=== PATIENT | female | born 1990 | race Caucasian/White ===

== ENCOUNTER 2023-06-25 22:43 | Emergency (ER) | payer BC ==
[~2023-06-25] VITALS: Ht 152.4 cm; Wt 52.2 kg
[2023-06-25 22:51] VITALS: TEMP 98.2
[2023-06-26] MEDS: LIDOCAINE /MPF 1% VIAL 5 ML VIAL TP ONE (00:23)
[2023-06-26] MEDS ORDERED: LIDOCAINE HCL/MPF 1% 30 ML VIAL IJ ONE (00:29)
[2023-06-26 01:23] VITALS: BP 106/81; O2SAT 100
== END 2023-06-26 01:24 | disposition home or self-care (01) ==
LOC: ER 22:50
DX: S61.012A Laceration without foreign body of left thumb without damage to nail, initial encounter (principal); W26.0XXA Contact with knife, initial encounter; Y93.89 Activity, other specified; Y92.89 Other specified places as the place of occurrence of the external cause; Y99.8 Other external cause status
CPT/HCPCS: 12002; 99282; J3490